=== PATIENT | male | born 1945 | race Caucasian/White ===

== ENCOUNTER 2024-01-15 00:35 | Emergency (ER) | payer MEDICARE ==
[~2024-01-15] VITALS: Ht 175.3 cm; Wt 88.5 kg
[2024-01-15] MEDS: DIPHENHYDRAMINE HCL INJ 50 MG/ML VIAL IV STA (00:52)
[2024-01-15] MEDS: ONDANSETRON HCL INJ 2MG/ML 2ML 2 MG/ML VIAL IV STA (00:53)
[2024-01-15] MEDS: METHYLPREDNISOLONE SOD SUCC 125 MG/2ML VIAL IV STA (00:53)
[2024-01-15] MEDS: SODIUM CHLORIDE 0.9% 1000ML 1,000 ML IV STA (00:53)
[2024-01-15 01:08] LABS: BASOPHILS % 0.2 % (0.0-1.0); EOSINOPHILS # (AUTO) 0.2 (0.0-0.4); EOSINOPHILS % 1.1 % (0.0-6.0); HEMATOCRIT 46.7 % (38.2-49.6); HEMOGLOBIN 15.2 g/dL (14.0-18.0); LYMPHOCYTES % 26.6 % (18.0-39.1); MEAN CORPUSCULAR HEMOGLOBIN 31.4 pg (28-32); MEAN CORPUSCULAR HGB CONC 32.5 g/dL (31-35); MEAN CORPUSCULAR VOLUME 96.5 fL (81-99); MONOCYTES # (AUTO) 0.9 (0.2-0.8); MONOCYTES % 4.8 % (4.4-11.3); NEUTROPHILS # (AUTO) 12.7 (2.1-6.9); NEUTROPHILS % 66.8 % (38.7-80.0); PLATELET COUNT 321 x10e3/uL (140-360); RED BLOOD COUNT 4.84 x10e6/uL (4.3-5.7); RED CELL DISTRIBUTION WIDTH 13.3 % (11.7-14.4); WHITE BLOOD COUNT 18.93 x10e3/uL (4.8-10.8)
[2024-01-15] MEDS: FAMOTIDINE 20 MG/2 ML VIAL IV STA (01:08)
[2024-01-15 01:26] LABS: ALANINE AMINOTRANSFERASE 47 IU/L (0-55); ALBUMIN 4.4 g/dL (3.5-5.0); ALBUMIN/GLOBULIN RATIO 1.6 (0.8-2.0); ALKALINE PHOSPHATASE 63 IU/L (40-150); ANION GAP 25.3 mmol/L (8-16); BILIRUBIN,TOTAL 0.9 mg/dL (0.2-1.2); BLOOD UREA NITROGEN 30 mg/dL (7-26); BUN/CREATININE RATIO 21 (6-25); CALCIUM 10.1 mg/dL (8.4-10.2); CARBON DIOXIDE 16 mmol/L (22-29); CHLORIDE 99 mmol/L (98-107); CREATINE KINASE 152 IU/L (30-200); CREATININE, SERUM 1.42 mg/dL (0.72-1.25); EST GLOMERULAR FILTRATION RATE 51 ML/MIN (>=60); GLUCOSE 245 mg/dL (74-118); SODIUM 137 mmol/L (136-145); TOTAL PROTEIN 7.2 g/dL (6.5-8.1)
[2024-01-15 01:33] LABS: POTASSIUM 3.3 mmol/L (3.5-5.1)
[2024-01-15] MEDS: EPINEPHRINE HCL 1:1000 1ML 1 MG/ML AMP INJ STA (01:56)
[2024-01-15 02:03] LABS: TROPONIN I < 0.001 ng/mL (0-0.300)
[2024-01-15] MEDS ORDERED: IOPAMIDOL 370 MG/ML 100 ML INFUS..BTL INJ ONE (02:20)
[2024-01-15] MEDS: GABAPENTIN 300 MG CAP PO STA (03:22)
[2024-01-15] MEDS: PROMETHAZINE 25MG/ NS 50ML (IV) IV STA (04:52)
[2024-01-15 05:00] VITALS: PULSE 104; RESP 22; TEMP 98.1
[2024-01-15] MEDS ORDERED: PREDNISONE20 MG PO (05:08)
[2024-01-15] MEDS ORDERED: EPINEPHRIN0.3 MG/0.3 IM (05:08)
[2024-01-15 05:35] VITALS: BP 140/73; O2SAT 95
== END 2024-01-15 05:25 | disposition home or self-care (01) ==
LOC: EDSEX 00:35 → ER 00:42
DX: R09.02 Hypoxemia (principal); T78.09XA Anaphylactic reaction due to other food products, initial encounter; R11.2 Nausea with vomiting, unspecified; R10.13 Epigastric pain; I10 Essential (primary) hypertension; E11.65 Type 2 diabetes mellitus with hyperglycemia; K21.9 Gastro-esophageal reflux disease without esophagitis; R94.31 Abnormal electrocardiogram [ECG] [EKG]; Z95.1 Presence of aortocoronary bypass graft
CPT/HCPCS: 36415; 71260; 74177; 80053; 82550; 83690; 83880; 84484; 85025; 93005; 99284; J0171; J1200; J2919; Q9967